=== PATIENT | male | born 1985 | race Caucasian/White ===

== ENCOUNTER 2017-07-01 18:39 | Emergency (ER) | payer OTHER ==
[2017-07-01] MEDS ORDERED: Sodium Chloride 0.9% 1,000 ML IV ONE (19:31)
[2017-07-01 20:34] LABS: CHLORIDE,CL 103 mmol/L (101-111); SODIUM,NA 139 mmol/L (135-145)
[2017-07-01 20:36] VITALS: BP 138/73
--- NOTE | 2017-07-01 20:40 | EDM.PDOC ---
[id number] 3d WHOLE BODY HURTS/DIZZY/HIGH FEVER, [id number] Time Seen by Provider: 07/01/17 19:15 Source of Information: Reports: Patient, Family History Limitations: Reports: No Limitations - History of Present Illness INITIAL COMMENTS - FREE TEXT/NARRATIVE: ED with c/o generalized body aches since Thursday, and fever. 102.5 at home prior. Ibuprofen at 5pm. No NVD. No sore throat, Headache, worse with fever. No neck pain. Works out doors. 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 [No Known Home Meds] 07/01/17 [History] Past Medical History - Past Health History Medical/Surgical History: Denies Medical/Surgical History - Infectious Disease History Infectious Disease History: Reports: Chicken Pox Social & Family History - Tobacco Use Smoking Status *Q: Current Every Day Smoker Years of Tobacco use: 10 Packs/Tins Daily: 15 - Caffeine Use Caffeine Use: Reports: Coffee, Soda - Alcohol Use Date of Last Drink: 06/26/17 - Recreational Drug Use Recreational Drug Use: No ED ROS GENERAL - Review of Systems Review Of Systems: See Below Constitutional: Reports: Fever, Malaise, Weakness HEENT: Reports: No Symptoms Respiratory: Reports: No Symptoms Cardiovascular: Reports: No Symptoms GI/Abdominal: Reports: No Symptoms Musculoskeletal: Reports: Other (generalized aches) Skin: Reports: No Symptoms. Denies: Rash Neurological: Reports: Headache ED EXAM, GENERAL - Physical Exam Exam: See Below Exam Limited By: No Limitations General Appearance: Alert, Mild Distress Ears: Normal External Exam, Normal TMs Nose: Normal Inspection Throat/Mouth: Normal Inspection Head: Atraumatic Neck: Full Range of Motion. No: Lymphadenopathy (L), Lymphadenopathy (R) Respiratory/Chest: No Respiratory Distress, Decreased Breath Sounds Cardiovascular: Normal Peripheral Pulses, Regular Rate, Rhythm GI/Abdominal: Normal Bowel Sounds, Soft, Non-Tender Back Exam: Normal Inspection, Full Range of Motion Neurological: Alert, Oriented, CN II-XII Intact, Normal Cognition Psychiatric: Normal Affect Skin Exam: Warm, Dry, Intact, No Rash (fase flushed) Course - Vital Signs Last Recorded V/S: Last Vital Signs Temp 97.5 F 07/01/17 20:35 Pulse 64 07/01/17 20:35 Resp 20 07/01/17 20:35 BP 138/73 07/01/17 20:35 Pulse Ox 98 07/01/17 20:35 - Orders/Labs/Meds Labs: Laboratory Tests 07/01/17 07/01/17 07/01/17 Range/Units 19:41 19:45 19:45 WBC 3.3 L (5.0-10.0) 10^3/uL RBC 5.19 (4.6-6.2) 10^6/uL Hgb 16.1 (14.0-18.0) g/dL Hct 44.9 (40.0-54.0) % MCV 86.5 (80-100) fL MCH 31.0 (27.0-34.0) pg MCHC 35.9 H (33.0-35.0) g/dL Plt Count 114 L (150-450) 10^3/uL Neut % (Auto) 53.6 (42.2-75.2) % Lymph % (Auto) 29.2 (20.5-50.1) % [place] % (Auto) 16.6 H (2-8) % Eos % (Auto) 0.3 L (1.0-3.0) % Baso % (Auto) 0.3 (0.0-1.0) % Sodium 139 (135-145) mmol/L Potassium 4.3 (3.6-5.0) mmol/L Chloride 103 (101-111) mmol/L Carbon Dioxide 26.0 (21.0-31.0) mmol/L Anion Gap 14.3 BUN 11 (7-18) mg/dL Creatinine 1.1 (0.6-1.3) mg/dL Est Cr Clr Drug Dosing 104.84 mL/min Estimated GFR (MDRD) > 60 BUN/Creatinine Ratio 10.00 Glucose 101 (74-105) mg/dL Lactic Acid 0.8 (0.5-2.2) mmol/L Calcium 9.2 (8.4-10.2) mg/dl Total Bilirubin 0.8 (0.2-1.0) mg/dL AST 112 H (10-42) IU/L ALT 112 H (10-60) IU/L Alkaline Phosphatase 78 (42-121) IU/L C-Reactive Protein (0.0-1.3) mg/dL Total Protein 6.9 (6.7-8.2) g/dl Albumin 3.9 (3.2-5.5) g/dl Globulin 3.0 Albumin/Globulin Ratio 1.30 Amylase 42 (28-100) U/L Lipase 26 (22-51) U/L Urine Color (YELLOW) Urine Appearance (CLEAR) Urine pH (5.0-9.0) Ur Specific [place] (1.005-1.030) Urine Protein (NEGATIVE) Urine Glucose (UA) (NEGATIVE) Urine Ketones (NEGATIVE) Urine Occult Blood (NEGATIVE) Urine Nitrite (NEGATIVE) Urine Bilirubin (NEGATIVE) Urine Urobilinogen (0.2-1.0) mg/dL Ur Leukocyte Esterase (NEGATIVE) Urine RBC /HPF Urine WBC (0-5/HPF) /HPF Amorphous Sediment (0/HPF) /HPF Urine Bacteria (0-FEW/HPF) /HPF B.burgdorferi IgG/IgM (NEG) West Nile Virus IgM Ab Monoscreen 07/01/17 07/01/17 07/01/17 Range/Units 19:45 19:45 19:45 WBC (5.0-10.0) 10^3/uL RBC (4.6-6.2) 10^6/uL Hgb (14.0-18.0) g/dL Hct (40.0-54.0) % MCV (80-100) fL MCH (27.0-34.0) pg MCHC (33.0-35.0) g/dL Plt Count (150-450) 10^3/uL Neut % (Auto) (42.2-75.2) % Lymph % (Auto) (20.5-50.1) % [place] % (Auto) (2-8) % Eos % (Auto) (1.0-3.0) % Baso % (Auto) (0.0-1.0) % Sodium (135-145) mmol/L Potassium (3.6-5.0) mmol/L Chloride (101-111) mmol/L Carbon Dioxide (21.0-31.0) mmol/L Anion Gap BUN (7-18) mg/dL Creatinine (0.6-1.3) mg/dL Est Cr Clr Drug Dosing mL/min Estimated GFR (MDRD) BUN/Creatinine Ratio Glucose (74-105) mg/dL Lactic Acid (0.5-2.2) mmol/L Calcium (8.4-10.2) mg/dl Total Bilirubin (0.2-1.0) mg/dL AST (10-42) IU/L ALT (10-60) IU/L Alkaline Phosphatase (42-121) IU/L C-Reactive Protein 4.1 H (0.0-1.3) mg/dL Total Protein (6.7-8.2) g/dl Albumin (3.2-5.5) g/dl Globulin Albumin/Globulin Ratio Amylase (28-100) U/L Lipase (22-51) U/L Urine Color (YELLOW) Urine Appearance (CLEAR) Urine pH (5.0-9.0) Ur Specific [place] (1.005-1.030) Urine Protein (NEGATIVE) Urine Glucose (UA) (NEGATIVE) Urine Ketones (NEGATIVE) Urine Occult Blood (NEGATIVE) Urine Nitrite (NEGATIVE) Urine Bilirubin (NEGATIVE) Urine Urobilinogen (0.2-1.0) mg/dL Ur Leukocyte Esterase (NEGATIVE) Urine RBC /HPF Urine WBC (0-5/HPF) /HPF Amorphous Sediment (0/HPF) /HPF Urine Bacteria (0-FEW/HPF) /HPF B.burgdorferi IgG/IgM Negative (NEG) West Nile Virus IgM Ab See scanned report Monoscreen 07/01/17 07/01/17 Range/Units 19:45 19:49 WBC (5.0-10.0) 10^3/uL RBC (4.6-6.2) 10^6/uL Hgb (14.0-18.0) g/dL Hct (40.0-54.0) % MCV (80-100) fL MCH (27.0-34.0) pg MCHC (33.0-35.0) g/dL Plt Count (150-450) 10^3/uL Neut % (Auto) (42.2-75.2) % Lymph % (Auto) (20.5-50.1) % [place] % (Auto) (2-8) % Eos % (Auto) (1.0-3.0) % Baso % (Auto) (0.0-1.0) % Sodium (135-145) mmol/L Potassium (3.6-5.0) mmol/L Chloride (101-111) mmol/L Carbon Dioxide (21.0-31.0) mmol/L Anion Gap BUN (7-18) mg/dL Creatinine (0.6-1.3) mg/dL Est Cr Clr Drug Dosing mL/min Estimated GFR (MDRD) BUN/Creatinine Ratio Glucose (74-105) mg/dL Lactic Acid (0.5-2.2) mmol/L Calcium (8.4-10.2) mg/dl Total Bilirubin (0.2-1.0) mg/dL AST (10-42) IU/L ALT (10-60) IU/L Alkaline Phosphatase (42-121) IU/L C-Reactive Protein (0.0-1.3) mg/dL Total Protein (6.7-8.2) g/dl Albumin (3.2-5.5) g/dl Globulin Albumin/Globulin Ratio Amylase (28-100) U/L Lipase (22-51) U/L Urine Color Light yellow (YELLOW) Urine Appearance Clear (CLEAR) Urine pH 7.5 (5.0-9.0) Ur Specific [place] 1.010 (1.005-1.030) Urine Protein Negative (NEGATIVE) Urine Glucose (UA) Negative (NEGATIVE) Urine Ketones Negative (NEGATIVE) Urine Occult Blood Negative (NEGATIVE) Urine Nitrite Negative (NEGATIVE) Urine Bilirubin Negative (NEGATIVE) Urine Urobilinogen 0.2 (0.2-1.0) mg/dL Ur Leukocyte Esterase Negative (NEGATIVE) Urine RBC 0-5 /HPF Urine WBC 0-5 (0-5/HPF) /HPF Amorphous Sediment Rare (0/HPF) /HPF Urine Bacteria Rare (0-FEW/HPF) /HPF B.burgdorferi IgG/IgM (NEG) West Nile Virus IgM Ab Monoscreen Negative Meds: Medications Discontinued Medications Generic Name Dose Route Start Last Admin Trade Name Freq PRN Reason Stop Dose Admin Sodium Chloride 1,000 mls @ 999 mls/hr 07/01/17 19:31 07/01/17 19:41 Normal Saline IV 07/01/17 20:31 999 mls/hr .BOLUS ONE Administration - Radiology Interpretation Free Text/Narrative:: CXR no pneumonia Departure - Departure Time of Disposition: 21:25 Disposition: Home, Self-Care 01 Condition: Fair Clinical Impression: Myalgia, Weakness generalized - Discharge Information Instructions: West Nile Virus, West Nile Virus Test Referrals: PCP,None [Primary Care Provider] - Forms: ED Department Discharge Additional Instructions: increase fluids rest alternate tylenol and ibuprofen every 4 hours as needed for pain/ fever urgent follow up if uncontrolled headache, change in behavior neck pain or worsening of headache with neck movment Lab results pending for west nile and lyme. Follow up clinic for repeat liver function studies 1-2 weeks tramadol 50mg one every 6 hours as needed for severe pain
== END 2017-07-01 21:33 | disposition home or self-care (01) ==
LOC: DL.ED 18:39
DX: M79.1 Myalgia (principal); R53.1 Weakness; F17.210 Nicotine dependence, cigarettes, uncomplicated
CPT/HCPCS: 36415; 71020; 80053; 81001; 82150; 83605; 83690; 85025; 86140; 86308; 86618; 86788; 87040; 87081; 87430; 96365; 99284; J7030

== ENCOUNTER 2025-06-04 12:41 | Emergency (ER) | payer OTHER ==
[2025-06-04] MEDS: Bacitracin Oint 1 GM U/D Packet TOP ONE (14:53)
[2025-06-04 15:09] VITALS: BP 139/67; PULSE 75
== END 2025-06-04 14:55 | disposition home or self-care (01) ==
LOC: DL.ED 12:41
DX: T23.242A Burn of second degree of multiple left fingers (nail), including thumb, initial encounter (principal); T23.252A Burn of second degree of left palm, initial encounter; Z79.899 Other long term (current) drug therapy; X08.8XXA Exposure to other specified smoke, fire and flames, initial encounter; Y93.89 Activity, other specified
CPT/HCPCS: 16020; 99283; A9270